=== PATIENT | male | born 1950 | race Native Hawaiian/Other Pacific Islander ===

== ENCOUNTER 2016-09-10 09:13 | Outpatient (CLI) | payer OTHER | END 2016-09-10 19:12 | disposition home or self-care (01) | LOC: CT 09:13 | DX: R91.1 Solitary pulmonary nodule (principal) ==

== ENCOUNTER 2018-03-02 08:08 | Outpatient (CLI) | payer OTHER | END 2018-03-02 19:26 | disposition home or self-care (01) | LOC: CT 08:08 | DX: R91.1 Solitary pulmonary nodule (principal) ==